=== PATIENT | female | born 2000 | race Caucasian/White ===

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

== ENCOUNTER 2021-11-25 13:40 | Emergency (ER) | payer MEDICAID ==
[2021-11-25 13:55] VITALS: BP 131/86
[2021-11-25 15:16] LABS: Appearance CLOUDY (CLEAR); Bilirubin NEGATIVE (NEGATIVE); Glucose NEGATIVE (NEGATIVE); Ketones MODERATE-40 (NEGATIVE); Nitrite POSITIVE (NEGATIVE); Protein,Urine Dip 100 (Negative); RBC TRACE-INTACT Ery/ul (0-5); Specific Gravity 1.025 (1.005-1.025); Urobilinogen 0.2 mg/dL (0-1)
[2021-11-25 15:17] LABS: Dipstick done @ ? MAIN LAB
[2021-11-25] MEDS ORDERED: KEFLEX 500 MG PO ONE (15:17)
--- NOTE | 2021-11-25 15:18 | ERPHSYRPT ---
- History of Present Illness Time Seen by Provider: 11/25/21 13:41 Patient Subjective Stated Complaint: Pt c/o of pain in her upper medial abdomen for the past 2 weeks Triage Nursing Assessment: Pt brought to the ER by her boyfriend, tachycardic, rates pain as 6/10, pt is laughing and talking in the bed to her boyfriend, pt requests a test, states that she has been nauseous for about 2 weeks but hasn't thrown up, pulses normal, skin n/w/d, was here 2 weeks ago with boyfriend and they were homeless staying in abandon homes, states that last bowel movement was yesterday and last intake was early this morning Physician History: 21 years old female presented to the ER with chief complaint of a lump feeling in the upper abdomen between umbilicus and xiphoid sternum for the last couple of weeks off-and-on noticed by boyfriend. Patient denies any nausea or vomiting associated with it. She could not show me where the lump is in keep asking boyfriend to show it which could not either. She denies any abdominal pain otherwise. She wants test done. Timing/Duration: week(s) (2), intermittent, improved Activities at Onset: activity Quality: sharpness Severity of Pain-Max: moderate Severity of Pain-Current: none Modifying Factors: Worsens With: movement, walking Associated Symptoms: denies symptoms Allergies/Adverse Reactions: [facility]razole [[facility]] Adverse Reaction (Severe, Verified 11/25/21 13:55) states "i get real aggressive" Hx Tetanus, Diphtheria Vaccination/Date Given: Yes Hx Influenza Vaccination/Date Given: Yes Hx Pneumococcal Vaccination/Date Given: No Travel Risk - International Travel Have you traveled outside of the country in past 3 weeks: No - Coronavirus Screening Are you exhibiting any of the following symptoms?: No - Vaccine Status Have you recieved a Covid-19 vaccination: No - Review of Systems Constitutional: No Symptoms Ears, Nose, & Throat: No Symptoms Respiratory: No Symptoms Cardiac: No Symptoms Abdominal/Gastrointestinal: Abdominal Pain Genitourinary Symptoms: No Symptoms Musculoskeletal: No Symptoms Neurological: No Symptoms Endocrine: No Symptoms Hematologic/Lymphatic: No Symptoms Immunological/Allergic: No Symptoms - Past Medical History Pertinent Past Medical History: Yes Neurological History: No Pertinent History ENT History: No Pertinent History Cardiac History: No Pertinent History Respiratory History: No Pertinent History Endocrine Medical History: No Pertinent History Musculoskeletal History: No Pertinent History GI Medical History: No Pertinent History History: No Pertinent History Psycho-Social History: Depression, Other Female Reproductive Disorders: No Pertinent History Other Medical History: TRICH 2020 - Past Surgical History Past Surgical History: No Neuro Surgical History: No Pertinent History Cardiac: No Pertinent History Respiratory: No Pertinent History Gastrointestinal: No Pertinent History Genitourinary: No Pertinent History Musculoskeletal: No Pertinent History Female Surgical History: No Pertinent History - Social History Smoking Status: Current every day smoker How long have you smoked: years Exposure to second hand smoke: Yes Alcohol Use: None Drug Use: marijuana Patient Lives Alone: No Significant Family History: no pertinent family hx - Female History Hx Now: No (unsure) - Nursing Vital Signs Nursing Vital Signs: Initial Vital Signs Temperature 97.9 F 11/25/21 13:45 Pulse Rate 108 H 11/25/21 13:45 Blood Pressure 131/86 11/25/21 13:45 O2 Sat by Pulse Oximetry 97 11/25/21 13:45 Pain Scale Pain Intensity 6 - Physical Exam General Appearance: no apparent distress, alert Eye Exam: PERRL/EOMI Ears, Nose, Throat Exam: normal ENT inspection Neck Exam: normal inspection, full range of motion Respiratory Exam: normal breath sounds, lungs clear Cardiovascular Exam: regular rate/rhythm, normal heart sounds Gastrointestinal/Abdomen Exam: soft, normal bowel sounds, other (Negative expansile cough impulse. No diastases recti), No tenderness Extremity Exam: normal inspection, normal range of motion Neurologic Exam: alert, oriented x 3, cooperative Skin Exam: normal color SpO2 Interpretation: normal SpO2: 97 O2 Delivery: Room Air Ordered Tests: Active Orders 24 hr Category Date Time Status CULTURE,URINE Stat Lab 11/25/21 14:56 Received HCG,QUALITATIVE URINE Stat Lab 11/25/21 14:56 Completed UA W/RFX CULTURE Stat Lab 11/25/21 14:56 Completed Medication Summary Discontinued Medications Generic Name Dose Route Start Last Admin Trade Name Freq PRN Reason Stop Dose Admin Cephalexin HCl 500 mg 11/25/21 15:17 11/25/21 15:28 Cephalexin Mh500 Mg Capsule PO 11/25/21 15:18 500 mg STAT ONE Administration Cephalexin HCl Confirm 11/25/21 15:27 Cephalexin Mh500 Mg Capsule Administered 11/25/21 15:28 Dose 500 mg .ROUTE .STK-MED ONE Lab/Rad Data: Laboratory Results 11/25/21 11/25/21 Range/Units 14:56 14:56 Urinalys Dipstick Clnc MAIN LAB Urine Color DARK YELLOW (YELLOW) Urine Appearance CLOUDY (CLEAR) Urine pH 6.0 (5-6) Ur Specific [place] 1.025 (1.005-1.025) POC Urine Protein Conf 100 (Negative) Urine Ketones MODERATE-40 (NEGATIVE) Urine Nitrite POSITIVE (NEGATIVE) Urine Bilirubin NEGATIVE (NEGATIVE) Urine Urobilinogen 0.2 (0-1) mg/dL Urine Leukocytes SMALL (NEGATIVE) Urine WBC (Auto) 51-100 (0-5) /HPF Urine RBC (Auto) 0-2 (0-2) /HPF U Epithel Cells (Auto) RARE (FEW) /HPF Urine Bacteria (Auto) PACKED (NEGATIVE) /HPF Urine RBC TRACE-INTACT (0-5) Andres/ul Other Casts (Auto) NEGATIVE (NEGATIVE) /LPF Urine Mucus (Auto) SLIGHT (NEGATIVE) /HPF Ur Culture Indicated? YES Urine Glucose NEGATIVE (NEGATIVE) mg/dL Urine HCG, Qual NEGATIVE (Negative) - Progress Progress: unchanged Progress Note: 11/25/21 15:42 Patient does have UTI and started on Keflex. Urine is negative. No abdominal tenderness at all. No obvious diastases recti or any other hernia. Outpatient follow-up recommended. Counseled pt/family regarding: lab results, diagnosis, need for follow-up - Departure Departure Disposition: Home Clinical Impression: Acute UTI Condition: Stable Critical Care Time: No Referrals: SALLY HERNANDEZ [Primary Care Provider] - Follow Up with PCP/3 days Instructions: Severe Abdominal Pain Additional Instructions: Take Tylenol as needed if having any abdominal pain. Follow-up with primary care for reevaluation. Return to ER for any worsening. Prescriptions: Cephalexin Mh 500 mg [Keflex 500 mg] 500 mg PO TID #21 cap
[2021-11-25 15:20] LABS: Bacteria PACKED /HPF (NEGATIVE); Epithelial Cells RARE /HPF (FEW); Mucus SLIGHT /HPF (NEGATIVE); RBC 0-2 /HPF (0-2); WBC 51-100 /HPF (0-5)
[2021-11-25 15:26] LABS: Urine Cultured Indicated? YES
[2021-11-25] MEDS ORDERED: KEFLEX 500 MG ONE (15:27)
[2021-11-25 15:50] VITALS: PULSE 100; O2SAT 98
== END 2021-11-25 15:50 | disposition home or self-care (01) ==
LOC: ED 13:40
DX: N39.0 Urinary tract infection, site not specified (principal); R19.07 Generalized intra-abdominal and pelvic swelling, mass and lump; Z72.0 Tobacco use; Z28.310 Unvaccinated for COVID-19
CPT/HCPCS: 81015; 81025; 87077; 87086; 87186; 99282; A9270-GY

== ENCOUNTER 2022-09-04 15:43 | Emergency (ER) | payer MEDICAID ==
[2022-09-04] MEDS ORDERED: MORPHINE SULFATE 2 MG INJ IV ONE (16:03)
[2022-09-04] MEDS ORDERED: Zofran 4 MG/2 ML VIAL IV ONE (16:03)
[2022-09-04] MEDS ORDERED: Sodium Chloride 0.9% 1000 ML 1,000 ML IV STA (16:03)
[2022-09-04] MEDS ORDERED: MORPHINE SULFATE 2 MG INJ ONE (16:06)
[2022-09-04 16:15] LABS: BASOPHIL % 0.7 % (0.0-0.4); Basophil (Absolute #) 0.04 x10^3/uL (0-0.4); Eosinophil % 0.8 % (0.00-5.0); Eosinophil (Absolute #) 0.05 x10^3/uL (0-0.5); Hematocrit 38.6 % (35-47); Hemoglobin 12.5 g/dL (12.0-16.0); Lymphocyte (Absolute #) 2.64 x10^3/uL (1.0-4.6); Lymphocytes % 43.3 % (24.0-44.0); Mean Cell Volume 92.8 fL (78-100); Mean Corpuscular Hgb Concent. 32.4 g/dL (32-36); Mean Platelet Volume 11.3 fL (7.5-11.0); Monocyte (Absolute #) 0.37 x10^3/uL (0.0-1.3); Monocytes % 6.1 % (0.0-12.0); Neutrophil % 49.1 % (36.0-66.0); Platelet Count 184 x10^3/uL (150-450); Red Blood Count 4.16 x10^6/uL (4.1-5.4); Red Cell Distribution Width 12.6 % (11.5-14.0); White Blood Count 6.1 x10^3/uL (4.0-10.5)
[2022-09-04] MEDS ORDERED: Zofran 4 MG/2 ML VIAL ONE (16:26)
[2022-09-04] MEDS ORDERED: Sodium Chloride 0.9% 1000 ML 1,000 ML ONE (16:27)
[2022-09-04 16:34] LABS: HCG SERUM TEST NEGATIVE (NEGATIVE)
[2022-09-04 16:36] LABS: ALBUMIN 4.5 g/dL (3.5-5.0); ALKALINE PHOSPHATASE 43 U/L (38-126); ANION GAP 13.9 MEQ/L (5-15); BLOOD UREA NITROGEN 15 mg/dL (7-17); CHLORIDE 104 mmol/L (98-107); Calcium 9.6 mg/dL (8.4-10.2); Carbon Dioxide 27 mmol/L (22-30); Creatinine 1 0.93 mg/dL (0.52-1.04); EST GLOMERULAR FILTRATION RATE > 60.0 ML/MIN; Glucose 162 mg/dL (74-106); LIPASE 54 U/L (23-300); Potassium 3.7 mmol/L (3.5-5.1); SGOT/AST 22 U/L (14-36); SGPT/ALT 15 U/L (0-35); SODIUM 142 mmol/L (137-145); Total Protein 7.6 g/dL (6.3-8.2)
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
[2022-09-04] MEDS ORDERED: XYLOCAINE 1% HCL 20 ML MDV ONE (18:09)
[2022-09-04] MEDS ORDERED: KEFZOL 1 GM/50 ML PREMIX** 1 GM/50 ML IVPB IV STA (18:42)
[2022-09-04] MEDS ORDERED: KEFZOL 1 GM/50 ML PREMIX** 1 GM/50 ML IVPB IV ONE (18:45)
[2022-09-04 19:36] LABS: Appearance Cloudy (Clear); Bacteria Many /HPF (None Seen); Bilirubin Negative (Negative); Blood Moderate (Negative); Epithelial Cells Many /HPF (None Seen); Glucose, Urine Negative (Negative); Hyaline Casts NONE SEEN /LPF (0-2); Ketones Negative (Negative); Leukocyte Esterase Trace (Negative); Nitrite Positive (Negative); Protein,Urine Dip Negative (Negative); RBC 0-2 /HPF (0-5); Specific Gravity >=1.030 (1.005-1.030); WBC 21-50 /HPF (0-5)
[2022-09-04 19:37] LABS: ADD URINE CULTURE? YES (NO)
[2022-09-04 19:44] LABS: Amphetamine,Urine NEGATIVE (NEGATIVE); Barbiturate,Urine NEGATIVE (NEGATIVE); Benzodiazepine,Urine NEGATIVE (NEGATIVE); Cocaine,Urine NEGATIVE (NEGATIVE); Methadone,Urine NEGATIVE (NEGATIVE); Opiate,Urine POSITIVE (NEGATIVE); PCP,Urine NEGATIVE (NEGATIVE); THC,Urine POSITIVE (NEGATIVE)
[2022-09-04 20:10] VITALS: BP 152/94; PULSE 70
[2022-09-04 20:19] VITALS: O2SAT 97
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
== END 2022-09-04 21:08 | disposition home or self-care (01) ==
LOC: ED 15:43
DX: S62.642B Nondisplaced fracture of proximal phalanx of right middle finger, initial encounter for open fracture (principal); S62.644B Nondisplaced fracture of proximal phalanx of right ring finger, initial encounter for open fracture; S62.646B Nondisplaced fracture of proximal phalanx of right little finger, initial encounter for open fracture; S66.326A Laceration of extensor muscle, fascia and tendon of right little finger at wrist and hand level, initial encounter; S16.1XXA Strain of muscle, fascia and tendon at neck level, initial encounter; S29.012A Strain of muscle and tendon of back wall of thorax, initial encounter; V58.5XXA Driver of pick-up truck or van injured in noncollision transport accident in traffic accident, initial encounter; Z28.310 Unvaccinated for COVID-19; Z72.0 Tobacco use
CPT/HCPCS: 12002; 36000; 36415; 70450; 71260; 72125; 73130; 74177; 80053; 80307; 81001; 83690; 84484; 84703; 85025; 87077; 87086; 87186; 93005; 96360; 96361; 96365; 96366; 96374; 96375; 99285; A4570; J0690; J2270; J2405; L0172